=== PATIENT | female | born 1985 | race Caucasian/White ===

== ENCOUNTER → 2022-02-11 | Outpatient (CLI) | payer BC ==
[2022-02-11 15:16] LABS: HEMOGLOBIN 11.3 gm/dl (12.3-15.3); RED BLOOD COUNT 4.01 M/UL (4.00-5.10); WHITE BLOOD COUNT 6.4 K/UL (4.5-11.0)
[2022-02-11 15:53] LABS: BUN/CREATININE RATIO 11 (0-10)
== END ==
LOC: CT 14:30
PROVIDERS: Physician Assistant
DX: M54.9 Dorsalgia, unspecified (principal); R53.83 Other fatigue; N20.0 Calculus of kidney
CPT/HCPCS: 36415; 80053; 85025; Q9967